=== PATIENT | female | born 1965 | race Hispanic/Latino ===

== ENCOUNTER 2018-07-16 13:15 | Observation (INO) | payer BC ==
[~2018-07-16] VITALS: Ht 165.1 cm; Wt 79.4 kg
--- OUTSIDE RECORDS SUMMARY | 2018-07-16 13:23 | XMS REPORT | Continuity of Care Document ---
Author Author [facility] Interface Address Unknown Phone Unavailable Problems Problem Status Onset Date Classification Date Reported Comments Source Medications Medication Details Route Status Patient Instructions Ordering Provider Order Date Source Allergies, Adverse Reactions, Alerts Substance Category Reaction Severity Reaction type Status Date Reported Comments Source Immunizations Immunization Date Given Site Status Last Updated Comments Source Results Order Name Results Value Reference Range Date Interpretation Comments Source Vital Signs Vital Sign Value Date Comments Source Encounters Location Location Details Encounter Type Encounter Number Reason For Visit Attending Provider ADM Date DC Date Status Source Outpatient [id number] JOSE PINA 01/24/2016 Active Alex Sexton Procedures Procedure Code Date Perfomer Comments Source
[2018-07-16] MEDS ORDERED: METOPROLOL TARTRATE INJ 1 MG/ML VIAL IV ONE (14:15)
[2018-07-16 14:16] LABS: BASOPHILS # (AUTO) 0.1 (0.0-0.1); BASOPHILS % 0.8 % (0.0-1.0); EOSINOPHILS # (AUTO) 0.4 (0.0-0.4); EOSINOPHILS % 3.8 % (0.0-6.0); HEMATOCRIT 42.5 % (34.2-44.1); HEMOGLOBIN 14.6 g/dL (12.0-16.0); LYMPHOCYTES # (AUTO) 2.6 (1.0-3.2); LYMPHOCYTES % 23.4 % (18.0-39.1); MEAN CORPUSCULAR HEMOGLOBIN 29.9 pg (28-32); MEAN CORPUSCULAR HGB CONC 34.4 g/dL (31-35); MEAN CORPUSCULAR VOLUME 87.1 fL (81-99); MONOCYTES % 9.2 % (4.4-11.3); NEUTROPHILS # (AUTO) 6.9 (2.1-6.9); NEUTROPHILS % 62.3 % (38.7-80.0); PLATELET COUNT 426 x10e3/uL (140-360); RED BLOOD COUNT 4.88 x10e6/uL (3.6-5.1); RED CELL DISTRIBUTION WIDTH 11.9 % (11.7-14.4)
[2018-07-16 14:27] LABS: ALANINE AMINOTRANSFERASE 90 IU/L (0-55); ALBUMIN 4.1 g/dL (3.5-5.0); ALBUMIN/GLOBULIN RATIO 1.1 (0.8-2.0); ALKALINE PHOSPHATASE 88 IU/L (40-150); ANION GAP 14.9 mmol/L (8-16); BLOOD UREA NITROGEN 13 mg/dL (7-26); BUN/CREATININE RATIO 18 (6-25); CALCIUM 10.1 mg/dL (8.4-10.2); CARBON DIOXIDE 21 mmol/L (22-29); CHLORIDE 104 mmol/L (98-107); CREATINE KINASE 55 IU/L (29-168); CREATININE, SERUM 0.72 mg/dL (0.57-1.11); EST GLOMERULAR FILTRATION RATE > 60 ML/MIN (60-); GLUCOSE 122 mg/dL (74-118); POTASSIUM 3.9 mmol/L (3.5-5.1); SODIUM 136 mmol/L (136-145)
[2018-07-16 14:30] LABS: INR 0.83; PROTHROMBIN TIME 11.9 seconds (11.9-14.5)
[2018-07-16 14:31] LABS: AMPHETAMINES SCREEN,URINE NEGATIVE (NEGATIVE); BENZODIAZEPINES SCREEN,URINE NEGATIVE (NEGATIVE); PHENCYCLIDINE SCREEN,URINE NEGATIVE (NEGATIVE)
[2018-07-16 14:31] LABS: PARTIAL THROMBOPLASTIN TIME 24.8 seconds (23.8-35.5)
[2018-07-16 14:46] LABS: THYROID STIMULATING HORMONE 0.041 uIU/mL (0.350-4.940)
--- NOTE | 2018-07-16 15:19 | Diagnostic Imaging Report ---
EXAMINATION: CHEST 2 VIEWS INDICATION: Chest pain, palpitations. COMPARISON: None FINDINGS: TUBES and LINES: None. LUNGS: Lungs are well inflated. Lungs are clear. There is no evidence of pneumonia or pulmonary edema. PLEURA: No pleural effusion or pneumothorax. HEART AND MEDIASTINUM: The cardiomediastinal silhouette is unremarkable. BONES AND SOFT TISSUES: No acute osseous abnormality. UPPER ABDOMEN: No free air under the diaphragm. IMPRESSION: No acute radiographic abnormality. Signed by: Dr. Grace James MD on 07/16/2018 3:16 PM
[2018-07-16] MEDS ORDERED: ONDANSETRON HCL INJ 2MG/ML 2ML 2 MG/ML VIAL IV PRN (16:15)
--- OUTSIDE RECORDS SUMMARY | 2018-07-16 16:31 | XMS REPORT ---
Author Author [facility] Address Unknown Phone Unavailable Care Team Providers Care Environmental Journalist Name Role Phone Shilpi VARELA Unavailable Unavailable Problems This patient has no known problems. Allergies, Adverse Reactions, Alerts This patient has no known allergies or adverse reactions. Medications This patient has no known medications. Results Test Description Test Time Test Comments Text Results Atomic Results Result Comments CHEST 2 VIEWS 2018-07-16 15:13:00 [facility] [address] [place] [address] Patient Name: NAIF COLBY MR #: [id number] : 1965 Age/Sex: 53/F Req #: [id number] [facility] Physician: Ordered by: AGUILA VARELA MD Report #: [id number] Location: ER Room/Bed: Procedure: [id number] DX/CHEST 2 VIEWS Exam Date: 07/16/18 Exam Time: 1330 REPORT STATUS: Signed EXAMINATION: CHEST 2 VIEWS INDICATION: Chest pain, p alpitations. COMPARISON: None FINDINGS: TUBES and LINES: None. LUNGS: Lungs are well inflated. Lungs are clear. There is no evidence of pneumonia or pulmonary edema. PLEURA: No pleural effusion or pneumothorax. HEART AND MEDIASTINUM: The cardiomediastinal silhouette is unremarkable. BONES AND SOFT TISSUES: No acute osseous abnormality. UPPER ABDOMEN: No free air under the diaphragm. IMPRESSION: No acute radiographic abnormality. Signed by: Dr. Rashawn Naik MD on 07/16/2018 3:16 PM Dictated By: RASHAWN NAIK MD [id number] Transcribed By: EVERARDO on 07/16/18 [id number] COPY TO: AGUILA VARELA MD
[2018-07-16] MEDS ORDERED: ACETAMINOPHEN 325 MG TAB PO ONE (17:30)
[2018-07-16] MEDS: METOPROLOL TARTRATE 25 MG TAB PO SCH (18:09)
[2018-07-16] MEDS: FAMOTIDINE 20 MG/2 ML VIAL IV SCH (18:10)
--- NOTE | 2018-07-16 19:20 | NUR ---
RECEIVED PATIENT FROM THE E.R. VIA STRETCHER. ALERT AND ORIENTED. ABLE TO AMBULATE AND TRANSFER INDEPENDENTLY. IV TO RIGHT AC 20G SECURED AND INTACT. ORIENTED TO ROOM. CALL LIGHT WITHIN REACHED.
[2018-07-16 20:00] VITALS: BP_SYST 145; BP_SYST 157; BP_DIAS 75; BP_DIAS 97
[2018-07-16] MEDS ORDERED: AMBIEN10 MG PO (20:38)
[2018-07-16 21:00] VITALS: BP 145/75
[2018-07-16 21:30] VITALS: BP 145/75
--- NOTE | 2018-07-16 21:30 | NUR ---
PATIENT COMPLAINT OF HEADACHE AND INSOMIA. SPOKE WITH DR. SERRA NEW ORDERS RECEIVED.
[2018-07-16] MEDS: ZOLPIDEM TARTRATE 10 MG TAB PO SCH (21:45)
[2018-07-16] MEDS: ACETAMINOPHEN 325 MG TAB PO PRN (21:45)
[2018-07-16 22:27] LABS: CREATINE KINASE MB 0.5 ng/mL (0-5.0)
[2018-07-17] VITALS (8 sets, daily range): BP systolic 114–157; BP diastolic 69–97
[2018-07-17] MEDS: FAMOTIDINE 20 MG/2 ML VIAL IV SCH ×2 (04:12→16:30)
[2018-07-17 06:42] LABS: BASOPHILS # (AUTO) 0.1 (0.0-0.1); BASOPHILS % 1.1 % (0.0-1.0); EOSINOPHILS # (AUTO) 0.4 (0.0-0.4); EOSINOPHILS % 3.8 % (0.0-6.0); HEMOGLOBIN 13.5 g/dL (12.0-16.0); LYMPHOCYTES # (AUTO) 2.6 (1.0-3.2); MEAN CORPUSCULAR HEMOGLOBIN 29.7 pg (28-32); MEAN CORPUSCULAR HGB CONC 33.8 g/dL (31-35); MEAN CORPUSCULAR VOLUME 88.1 fL (81-99); MONOCYTES # (AUTO) 1.1 (0.2-0.8); MONOCYTES % 10.8 % (4.4-11.3); NEUTROPHILS # (AUTO) 5.8 (2.1-6.9); NEUTROPHILS % 57.7 % (38.7-80.0); PLATELET COUNT 412 x10e3/uL (140-360); RED BLOOD COUNT 4.54 x10e6/uL (3.6-5.1); RED CELL DISTRIBUTION WIDTH 11.9 % (11.7-14.4)
[2018-07-17 06:55] LABS: ALANINE AMINOTRANSFERASE 76 IU/L (0-55); ALBUMIN 3.6 g/dL (3.5-5.0); ALKALINE PHOSPHATASE 81 IU/L (40-150); ANION GAP 13.8 mmol/L (8-16); BLOOD UREA NITROGEN 18 mg/dL (7-26); BUN/CREATININE RATIO 24 (6-25); CALCIUM 9.6 mg/dL (8.4-10.2); CARBON DIOXIDE 22 mmol/L (22-29); CHLORIDE 106 mmol/L (98-107); CHOL/HDL RATIO 5.7 (3.0-3.6); CHOLESTEROL 262 MD/DL (0-199); CREATININE, SERUM 0.74 mg/dL (0.57-1.11); EST GLOMERULAR FILTRATION RATE > 60 ML/MIN (60-); GLUCOSE 121 mg/dL (74-118); HDL CHOLESTEROL 46 MG/DL (40-60); LDL CHOLESTEROL 146 MG/DL (60-130); POTASSIUM 3.8 mmol/L (3.5-5.1); SODIUM 138 mmol/L (136-145); TRIGLYCERIDES 352 MG/DL (0-149)
--- NOTE | 2018-07-17 07:39 | NUR ---
H&P cc: cp HPI: 53yoF, PCP none, developed chest palpitation and sob. PMH: HTN, insomnia, SVT; current smoker PSHx: cataract Allergies; see emr fh/SH; drinks etoh on weekend; smokes on weekend; Meds; see MAR ROS: no f/c/s/N/V/D/FONG/vision changes/dizziness/skin rash v/s; Revd PE: nad anicteric ns1s2 mod bs soft nt nd no e/t a&ox3; minaya skin dry n. affect labs/med; revd A/P: 53yoF Atypical CP Sinus tachycardia Hypertriglyceridemia HTN Hyperglycemia Overweight BMI 29 Insomnia PLAN BB/statin/asa; fibrate check hba1c lovenox; franca ROBERTO MD, PhD.
[2018-07-17 08:10] LABS: CREATINE KINASE 40 IU/L (29-168)
--- NOTE | 2018-07-17 09:24 | NUR ---
CASE MANAGEMENT INITIAL ASSESSMENT Assistant Track Coach to bedside to discuss plan of care with patient/family. CM/SW role and care transitions discussed. Anticipated discharge plan discussed along with duration of care. CM/SW discussed patients right to make decisions in care. CM/SW work hours given. Patient lives: W/ Admit/Transfer: ER Hospital/ER visits since last admit: YES POA/Emergency contact: : MARIBEL [phone] Current/Previous Home Health: 0 PCP/Follow-up Care: NONE Current/Previous DME: 0 Medications (referring to index hospitalization or the first time you were in the hospital) a. Were changes made in your medications when you were in the hospital on [date of index hospitalization]? Yes X No Not sure Explain: Note: If no or not sure, please skip to question d b. Did you understand the changes? Yes No Explain: c. Were you able to obtain your new medications right away? Yes No n/a SNF only Explain: d. Were you able to take your medications like the doctor wanted you to? X Yes No Explain: e. Did the hospital give you an accurate, easy to understand list of medications when you left? X Yes No n/a SNF only Explain: Scale of 1-10 how comfortable does patient feel with disease management in outpatient settin Other Services: 0 Employment Status: UNEMPLOYED Areas of Concerns: DENIES ANY Referral Needs: 0 Education Needs: 0 IMM/DUBON given and signed (if applicable): N/A Goal for discharge: RETURN HOME W/ CM/SW left business card at the bedside with contact information. Name and number was also written on the patients whiteboard. Patient verbalized understanding of discussion. CM will follow-up with ongoing discharge and transition of care needs.
[2018-07-17] MEDS: ASPIRIN 81 MG ENTERIC COATED PO SCH (11:10)
[2018-07-17] MEDS: METOPROLOL TARTRATE 25 MG TAB PO SCH ×2 (11:11→20:32)
[2018-07-17] MEDS: ACETAMINOPHEN 325 MG TAB PO PRN (14:31)
[2018-07-17] MEDS: ZOLPIDEM TARTRATE 10 MG TAB PO SCH (20:31)
[2018-07-18] VITALS: BP 137/88
[2018-07-18 04:00] VITALS: BP_SYST 128; BP_SYST 137; BP_DIAS 66; BP_DIAS 88
[2018-07-18] MEDS: FAMOTIDINE 20 MG/2 ML VIAL IV SCH (04:15)
--- NOTE | 2018-07-18 06:17 | NUR ---
Called Dr. Lacy for order verification. No answer.
[2018-07-18] MEDS ORDERED: FAMOTIDINE 20 MG TAB PO SCH (07:30)
[2018-07-18 08:00] VITALS: BP 128/66
[2018-07-18] MEDS: ASPIRIN 81 MG ENTERIC COATED PO SCH (08:55)
[2018-07-18] MEDS: METOPROLOL TARTRATE 25 MG TAB PO SCH (08:55)
[2018-07-18] MEDS ORDERED: FENOFIBRATE 145 MG TAB PO SCH (09:00)
[2018-07-18 09:55] VITALS: BP 133/86
[2018-07-18] MEDS ORDERED: FENOFIBRATE145 MG PO (13:38)
[2018-07-18] MEDS ORDERED: SYNTHROID125 MCG PO (13:38)
[2018-07-18] MEDS ORDERED: METOPROLOL TART50 MG PO (13:38)
[2018-07-18] MEDS ORDERED: ASPIRIN EC81 MG PO (13:38)
--- NOTE | 2018-07-18 13:43 | NUR ---
D/C summary Principal Dx: Atypical CP Sinus tachycardia Hypertriglyceridemia Hypothyroidism Secondary Dx: HTN Hyperglycemia Overweight BMI 29 Insomnia PLAN BB/statin/asa; fibrate check hba1c lovenox; pepcid d/c home with metoprolol and fenofibrate f/u Tino 1 week stable d/c 35mins MD FELISA, PhD.
--- NOTE | 2018-07-18 14:00 | NUR ---
Per Dr. Lacy patient may be discharged home and follow up with cardiology as an outpatient.`Dr. Lacy will call prescriptions in.
--- NOTE | 2018-07-18 14:57 | NUR ---
ADDENDUM to D/C summary: SYSTOLIC CHF- LVEF 40%; f/u outpt with for further workup. D/C summary Principal Dx: Atypical CP Sinus tachycardia Hypertriglyceridemia Systolic CHF LVEF 40% Hypothyroidism Secondary Dx: HTN Hyperglycemia Overweight BMI 29 Insomnia PLAN BB/statin/asa; fibrate check hba1c lovenox; pepcid d/c home with metoprolol and fenofibrate f/u Tino 1 week stable d/c 35mins MD FELISA, PhD.
--- NOTE | 2018-07-18 16:30 | NUR ---
Patient discharged home with written instructions. Patient verbalized understanding. Spouse took patient home with all belongings in stable condition.
[2018-07-18] MEDS ORDERED: ENOXAPARIN SOD INJ 40 MG/0.4 ML SYR SC SCH (17:00)
--- NOTE | 2018-07-18 20:48 | Consultation ---
DATE OF CONSULTATION: 07/18/2018 Cardiac Consultation REASON FOR THE CONSULTATION: Supraventricular tachycardia. HISTORY OF PRESENT ILLNESS: A 53-year-old lady was known with chronic back problem, status post surgery following an accident. Pain management on medication. Past history for SVT ablation in [facility] in 2011. The patient followed by Pain Management and Dr. Bernabe for her thyroid. He is adjusting her dose. She is on waldemar dose of 300 mcg of levothyroxine. She told her also she will take care of her hypercholesteremia. The patient came to this institution with 3 days duration of continuous tachycardia. She was in SVT with a rate of [address] changes. She felt her heart racing. With that, she had some chest tightness. There is no orthopnea. There is no paroxysmal nocturnal dyspnea. The patient is a smoker mainly over the weekend when she takes few drinks of alcohol. She takes her medication regularly. There is no syncope or presyncope. REVIEW OF SYSTEMS: GENERAL: No fever. No chills. HEENT: Unremarkable. PULMONARY: No cough. No hemoptysis. No recent travel, although she rides motorcycle. No pleuritic chest pain. CARDIAC: With fast heart rate, she felt her heart racing and tightness, but since her heart rate is okay, she is doing well. GI: No constipation. No hematemesis. No melena. : Increased frequency of urination. MUSCULOSKELETAL: Low back pain, leg pain. She needs to take her muscle relaxants and pain medication. NEUROLOGICAL: No seizure activity. ENDOCRINE: No diabetes. No polyuria. No polydipsia. HEMATOLOGY: Easy bruising, but no bleeding. SOCIAL HISTORY: She is . She smokes only and drink over the weekend. She does not use any drugs. HOME MEDICATIONS: Levothyroxine 200 mcg a day, hydrocodone and muscle relaxant. ALLERGIES: PER CHART. PAST MEDICAL HISTORY: 1. Hypothyroidism, on replacement. 2. Hypercholesteremia. 3. Smoker, 4. Back problems, status post surgery in 2015. 5. SVT, status post ablation in [facility] in 2011. She does not remember the name of the doctor. 6. Hypothyroidism. 7. Cataract surgery. FAMILY HISTORY: Father of pancreatic cancer at age 42. Mother is doing well. No brothers, three sisters. She lost a sister to breast cancer. Two healthy sons. No daughters. PHYSICAL EXAMINATION: VITAL SIGNS: Height of 5 feet 6 inches, weight of 175 pounds, blood pressure 130/80, heart rate of 70, respiratory rate of 18. HEENT: Pupils are reactive. NECK: No elevation of jugular venous pulsation. CHEST: Clear to auscultation and percussion. HEART: PMI 5th left intercostal space. Normal first and second heart sound. ABDOMEN: Soft. There is good bowel sounds. EXTREMITIES: No cyanosis, no clubbing, no edema. NEUROLOGIC: Nonfocal. LABORATORY DATA: Admission TSH was 0.028, repeating TSH 0.041 of thyroid medication, triglycerides of 352, cholesterol is high with total cholesterol of 262, HDL of only 46, LDL of 146. Cardiac enzymes are normal. EKG on admission showed SVT. Second EKG showed heart rate is controlled. IMPRESSION AND PLAN: 1. Tachycardia and with history of supraventricular tachycardia ablation, most likely recurrence of supraventricular tachycardia. 2. Hypothyroidism, on high dose of replacement with very low TSH. This also can contribute to the tachycardia. 3. Smoker. 4. Chronic back problem and back pain. Cardiac peterson, I will concur with metoprolol, aspirin will be beneficial and I will leave the management of her thyroid and her hypercholesteremia to her aspnet developer, although I recommend definitely not to take any thyroxine for the time being and check her TSH off medication and we will leave this up to Dr. Bernabe. If the patient stays in the hospital, we will do cardiac stress test tomorrow. All this discussed and the patient verbalized understanding. MD KAITLIN Olsen/CATALINA /[id number]
[2018-07-18] MEDS ORDERED: METOPROLOL TARTRATE 25 MG TAB PO SCH (21:00)
[2018-07-19] MEDS ORDERED: LEVOTHYROXINE SODIUM 100 MCG TAB PO SCH ×2 (06:00)
== END 2018-07-18 16:18 | disposition home or self-care (01) ==
LOC: EDBD 13:20 → ER 13:20 → ERHOLD 16:28 → IMCU 19:26
PROVIDERS: ADMIT Internal Medicine; ATTEND Internal Medicine
DX: I47.1 Supraventricular tachycardia (principal); R07.89 Other chest pain; I10 Essential (primary) hypertension; G47.00 Insomnia, unspecified; F17.200 Nicotine dependence, unspecified, uncomplicated; E78.1 Pure hyperglyceridemia; E66.3 Overweight; Z68.29 Body mass index [BMI] 29.0-29.9, adult; R73.9 Hyperglycemia, unspecified; I11.0 Hypertensive heart disease with heart failure; I50.20 Unspecified systolic (congestive) heart failure; E03.9 Hypothyroidism, unspecified; Z79.52 Long term (current) use of systemic steroids
CPT/HCPCS: 36415 ×3; 71046; 80053 ×2; 80061; 80307; 82550 ×2; 82553 ×2; 83036; 83880; 84443 ×2; 84484 ×2; 85025 ×2; 85610; 85730; 93005; 93306; 99284; G0378 ×3